=== PATIENT | female | born 1975 | race Caucasian/White ===

== ENCOUNTER 2019-06-01 10:20 | Inpatient (IN) ==
[2019-06-01] MEDS ORDERED: NS 1,000 ML IV ONE (10:38)
[2019-06-01] MEDS ORDERED: ACTIDOSE 50 GM LIQUID NG ONE (10:51)
[2019-06-01] MEDS ORDERED: ACETADOTE 15,000 MG in D5W 200 ML IV ONE (11:00)
[2019-06-01 11:02] LABS: BASO# 0.07 X1000 (0.0-0.2); BASO% 0.6 % (0.0-0.8); EOS# 0.11 X1000 (0.0-0.7); EOS% 0.9 % (0.0-10.0); HEMATOCRIT 43.9 % (37.0-47.0); HEMOGLOBIN 14.7 g/dL (12.0-16.0); IMM GRAN# 0.05 X1000 (0.0-0.04); IMM GRAN% 0.4 % (0.0-0.5); LYMPH# 2.94 X1000 (1.2-3.4); LYMPH% 23.2 % (20.5-51.1); MCH 32.1 PG (27-31); MCHC 33.5 g/dL (33-37); MCV 95.9 FL (81-99); MONO% 5.5 % (1.7-9.3); MPV 9.4 FL (7.4-10.4); NEUT# 8.79 X1000 (1.4-6.5); NEUT% 69.4 % (42.2-75.2); PLT 302 X1000 (130-400); RBC 4.58 XMIL (4.2-5.4); RDW 13.3 % (11.5-14.5); WBC 12.66 X1000 (4.8-10.8)
[2019-06-01 11:08] LABS: URINE SOURCE CLEAN CATCH
[2019-06-01 11:18] LABS: AGAP 14; ALB/GLOB RATIO 1.5; ALKALINE PHOSPHATASE 118 U/L (32-104); BUN 12 mg/dL (8-22); CALCIUM 8.3 mg/dL (8.8-10.2); CHLORIDE 101 mmol/L (98-107); COSMO 277; CREATININE 0.7 mg/dL (0.5-0.9); ESTIMATED GFR > 60; GLUCOSE 97 mg/dL (70-104); GOT 12 U/L (10-30); GPT 21 U/L (10-36); POTASSIUM 4.2 mmol/L (3.5-5.1); SODIUM 139 mmol/L (136-145); TCO2 24 mmol/L (25-35); TOTAL BILIRUBIN 0.37 mg/dL (0.20-1.00); TOTAL PROTEIN 6.7 g/dL (6.3-8.3)
[2019-06-01 11:19] LABS: BILIRUBIN URINE NEGATIVE (NEGATIVE); BLOOD URINE NEGATIVE (NEGATIVE); COLOR STRAW; GLUCOSE URINE NEGATIVE (NEGATIVE); KETONE URINE NEGATIVE (NEGATIVE); LEUKOCYTES URINE TRACE (NEGATIVE); NITRITE URINE NEGATIVE (NEGATIVE); PROTEIN URINE NEGATIVE (NEGATIVE); SP GRAVITY URINE 1.018; TURBIDITY URINE CLEAR (CLEAR); UR EPITHELIAL CELLS <10 /HPF (<10); URINE BACTERIA NEGATIVE /HPF; URINE RBC <10 /HPF (<10); URINE WBC <10 /HPF (<10); UROBILINOGEN URINE NORMAL (NORMAL)
[2019-06-01 11:25] LABS: UR AMPHETAMINES QUAL NONE DETECTED (NONE DETECT); UR BARBITUATES QUAL NONE DETECTED (NONE DETECT); UR BENZODIAZEPIN QUAL NONE DETECTED (NONE DETECT); UR CANNABINOIDS QUAL NONE DETECTED (NONE DETECT); UR COCAINE QUAL NONE DETECTED (NONE DETECT); UR METHADONE QUAL NONE DETECTED (NONE DETECT); UR OPIATES QUAL PRESUMPTIVE POSITIVE (NONE DETECT); UR OXYCODONE QUAL NONE DETECTED (NONE DETECT); UR PCP QUAL NONE DETECTED (NONE DETECT)
[2019-06-01 11:36] LABS: FREE T4 1.01 ng/dL (0.93-1.70); TSH 2.39 uIUmL (0.27-4.20)
--- NOTE | 2019-06-01 12:03 | Diag Imaging Result Doc PS360 ---
EXAM: CHEST/ABD TUBE PLACEMENT 06/01/2019 HISTORY: ng tube placement TECHNIQUE: AP abdomen COMMENT: There is an NG tube in the distal stomach or duodenal bulb. IMPRESSION: NG tube below the diaphragm Electronically signed by Giuseppe Tejeda 06/01/2019 12:00 PM
[2019-06-01] MEDS ORDERED: REGLAN IV ONE (12:54)
--- NOTE | 2019-06-01 14:25 | EKG Report ---
Test Performed on : 06/01/2019 10:26:43 AM Test Reason : POSSIBLE OD Blood Pressure : / mmHG Vent. Rate : 077 BPM Atrial Rate : 077 BPM P-R Int : 156 ms QRS Dur : 072 ms QT Int : 378 ms P-R-T Axes : -03 -28 002 degrees QTc Int : 427 ms Normal sinus rhythm. Voltage criteria for left ventricular hypertrophy Possible Lateral infarct , age undetermined Abnormal ECG When compared with ECG of 24-JUN-2018 12:51, Vent. rate has decreased BY 42 BPM Nonspecific T wave abnormality, improved in Lateral leads Unconfirmed Result
--- NOTE | 2019-06-01 14:51 | PROVIDER DOCUMENTATION ---
This chart was entered by Leonie Freeman Scribe, acting as scribe for Moisés Dong MD. [id number] Abuse/Overdose - General Chief Complaint: Suicide Attempt Stated Complaint: OVERDOSE ON TYLENOL Time Seen by Provider: 06/01/19 10:38 Source: patient Allergies/Adverse Reactions: Allergies Allergy/AdvReac Type Severity Reaction Status Date / Time No Known Allergies Allergy Verified 10/04/15 11:12 Home Medications: Home Medication List Medication Instructions Recorded Confirmed Last Taken Type Buspirone [Buspar] 10 mg PO BID 09/21/15 06/01/19 10/07/15 05:00 History Furosemide [Lasix] 20 mg PO DAILY 09/21/15 06/01/19 10/06/15 08:00 History Propranolol [Inderal] 10 mg PO BID 09/21/15 06/01/19 10/06/15 21:00 History Venlafaxine [Effexor] 37.5 mg PO DAILY 09/21/15 06/01/19 10/07/15 05:00 History Atorvastatin Calcium 40 mg PO DAILY 06/01/19 06/01/19 Unknown History Eszopiclone 3 mg PO DAILY 06/01/19 06/01/19 Unknown History Gabapentin 800 mg PO DAILY 06/01/19 06/01/19 Unknown History Methocarbamol 750 mg PO TID PRN 06/01/19 06/01/19 Unknown History - History of Present Illness-Drug/Alcohol Nature of Presenting Problem: Patient is a 44 year old female who presents to the ED after having a suicide attempt. States she took 20 pills of Tylenol about 2 hours ago. Report headache, chest pain, and nausea. States she has had SI and depression for the last month. Denies hallucinations. This episode of drinking or use began:: 1-3 hours ago (2 hours ago) Severity: reports: mild Psychiatric Complaints: reports: depressed, suicidal ideation Associated Symptoms: reports: chest pain, headaches, nausea Any injuries associated with this episode of intoxication?: No Similar Symptoms Previously?: No Recently seen or treated by another doctor?: No - Overdose Intentional drug overdose?: Yes List substance(s) ingested.: 20 pills of Tylenol (unknown dose) Suicide Risk Assessment: prior attempt Review of Systems - Adult - REVIEW OF SYSTEMS - ADULT Constitutional: reports: no symptoms reported. denies: chills, fever, fatique Eyes: reports: no symptoms reported Ears, Nose, Mouth & Throat: reports: no symptoms reported Cardiovascular: reports: chest pain. denies: heart murmur, orthopnea Respiratory: reports: no symptoms reported Gastrointestinal: reports: see HPI, nausea. denies: abdominal pain, vomiting Genitourinary: reports: no symptoms reported Musculoskeletal: reports: no symptoms reported Integumentary: reports: no symptoms reported Neurological: reports: see HPI, headache/migraines (VAN). denies: dizziness/vertigo, syncope Psychiatric: reports: no symptoms reported Endocrine: reports: no symptoms reported Hematologic/Lymphatic: reports: no symptoms reported Allergic/Immunologic: reports: no symptoms reported All Other Systems: Reviewed and Negative Past History - Adult - PAST MEDICAL HISTORY-ADULT Review of Records: reports: Old Records Reviewed, Social history reviewed & non- contributory. Major Childhood Illnesses: reports: denies history Cardiovascular: reports: HTN, hyperlipidemia Respiratory: reports: sleep apnea Gastrointestinal: reports: GERD Obstetrical/Gynecological: reports: denies history Genitourinary: reports: denies history Musculoskeletal: reports: denies history Neurological: reports: Seizures/Epilepsy Psychiatric: reports: depression Endocrine/Immune: reports: denies history Other Conditions: reports: denies history - PRIOR SURGERIES/PROCEDURES Surgical/Procedure History: reports: cholecystectomy, hysterectomy, back/neck (back sx) - IMMUNIZATION STATUS Childhood Immunizations: See Nurse Assessment Flu Vaccine: See Nurse Assessment - FAMILY HISTORY Family History: reviewed, not pertinent - SOCIAL HISTORY Smoking: cigarettes (former) Substance Use: denies Physical Exam-General - PHYSICAL EXAM-ADULT Initial Vital Signs Reviewed: Yes - CONSTITUTIONAL General Appearance: alert, no apparent distress. negative: lethargic - EYES Eyes: PERRL/EOMI, pink conjunctivae. negative: scleral icterus - HEAD, EARS, NOSE, MOUTH & THROAT HENMT: normocephalic/atraumatic, moist mucous membranes. negative: angioedema - RESPIRATORY Respiratory: chest non-tender, lungs clear, normal breath sounds. negative: crackles, rhonchi - CARDIOVASCULAR Cardiovascular: normal peripheral pulses, regular rate, rhythm. negative: tachycardia - GASTROINTESTINAL (ABDOMEN) Abdominal Exam: normal bowel sounds, non tender, soft. negative: guarding, rigid - MUSCULOSKELETAL Extremity: normal inspection. negative: deformity, erythema, swelling - SKIN Integumentary: normal color, normal turgor, warm/dry. negative: diaphoresis, pallor, rash - NEUROLOGIC Neurologic: grossly normal. negative: aphasia, facial droop - PSYCHIATRIC Psych/Mental Status: normal mood/affect, oriented x 3. negative: anxious Progress - PLAN OF CARE/RESULTS Progress/Plan/Lab Results: Vital Signs - 8 hr 06/01/19 10:26 06/01/19 10:30 06/01/19 12:01 Temperature 98.5 F Pulse Rate 77 Respiratory Rate 14 Blood Pressure 159/101 159/101 145/106 O2 Sat by Pulse Oximetry 98 98 06/01/19 13:01 06/01/19 14:01 Temperature Pulse Rate Respiratory Rate Blood Pressure 145/110 142/99 O2 Sat by Pulse Oximetry 95 94 L Laboratory Results - last 24 hr 06/01/19 06/01/19 06/01/19 10:37 10:37 10:37 WBC 12.66 H RBC 4.58 Hgb 14.7 Hct 43.9 MCV 95.9 MCH 32.1 H MCHC 33.5 RDW Std Deviation 13.3 Plt Count 302 MPV 9.4 Immature Gran % (Auto) 0.4 Neut % (Auto) 69.4 Lymph % (Auto) 23.2 [place] % (Auto) 5.5 Eos % (Auto) 0.9 Baso % (Auto) 0.6 Immature Gran # (Auto) 0.05 H Neut # (Auto) 8.79 H Lymph # (Auto) 2.94 [place] # (Auto) 0.70 H Eos # (Auto) 0.11 Baso # (Auto) 0.07 Sodium 139 Potassium 4.2 Chloride 101 Carbon Dioxide 24 L Anion Gap 14 BUN 12 Creatinine 0.7 Estimated GFR/1.73 m2 > 60 BUN/Creatinine Ratio 17 Glucose 97 Calculated Osmolality 277 Calcium 8.3 L Total Bilirubin 0.37 AST 12 ALT 21 Alkaline Phosphatase 118 H Total Protein 6.7 Albumin 4.0 Globulin 2.7 Albumin/Globulin Ratio 1.5 Vitamin B12 TSH Free T4 Urine Source Urine Color Urine Turbidity Urine pH Ur Specific Springer Urine Protein Ur Glucose (Stick) Ur Ketones (Stick) Urine Blood Urine Nitrite Urine Bilirubin Urobilinogen Dipstick Urine Leukocytes Urine WBC (Auto) Urine RBC (Auto) U Epithel Cells (Auto) Urine Bacteria (Auto) Urine Test Salicylates Urine Opiates Screen Ur Oxycodone Screen Ur Methadone, Qual Acetaminophen Ur Barbiturates Screen Ur Phencyclidine Scrn Ur Amphetamines Screen U Benzodiazepines Scrn Urine Cocaine Screen U Cannabinoids Screen Plasma/Serum Ethyl Alc 06/01/19 06/01/19 06/01/19 10:37 10:37 10:37 WBC RBC Hgb Hct MCV MCH MCHC RDW Std Deviation Plt Count MPV Immature Gran % (Auto) Neut % (Auto) Lymph % (Auto) [place] % (Auto) Eos % (Auto) Baso % (Auto) Immature Gran # (Auto) Neut # (Auto) Lymph # (Auto) [place] # (Auto) Eos # (Auto) Baso # (Auto) Sodium Potassium Chloride Carbon Dioxide Anion Gap BUN Creatinine Estimated GFR/1.73 m2 BUN/Creatinine Ratio Glucose Calculated Osmolality Calcium Total Bilirubin AST ALT Alkaline Phosphatase Total Protein Albumin Globulin Albumin/Globulin Ratio Vitamin B12 217 L TSH 2.39 Free T4 1.01 Urine Source Urine Color Urine Turbidity Urine pH Ur Specific Springer Urine Protein Ur Glucose (Stick) Ur Ketones (Stick) Urine Blood Urine Nitrite Urine Bilirubin Urobilinogen Dipstick Urine Leukocytes Urine WBC (Auto) Urine RBC (Auto) U Epithel Cells (Auto) Urine Bacteria (Auto) Urine Test Salicylates < 3.00 L Urine Opiates Screen Ur Oxycodone Screen Ur Methadone, Qual Acetaminophen 39.7 H Ur Barbiturates Screen Ur Phencyclidine Scrn Ur Amphetamines Screen U Benzodiazepines Scrn Urine Cocaine Screen U Cannabinoids Screen Plasma/Serum Ethyl Alc 06/01/19 06/01/19 06/01/19 10:56 10:56 10:56 WBC RBC Hgb Hct MCV MCH MCHC RDW Std Deviation Plt Count MPV Immature Gran % (Auto) Neut % (Auto) Lymph % (Auto) [place] % (Auto) Eos % (Auto) Baso % (Auto) Immature Gran # (Auto) Neut # (Auto) Lymph # (Auto) [place] # (Auto) Eos # (Auto) Baso # (Auto) Sodium Potassium Chloride Carbon Dioxide Anion Gap BUN Creatinine Estimated GFR/1.73 m2 BUN/Creatinine Ratio Glucose Calculated Osmolality Calcium Total Bilirubin AST ALT Alkaline Phosphatase Total Protein Albumin Globulin Albumin/Globulin Ratio Vitamin B12 TSH Free T4 Urine Source CLEAN CATCH Urine Color STRAW Urine Turbidity CLEAR Urine pH 6.0 Ur Specific [place] 1.018 Urine Protein NEGATIVE Ur Glucose (Stick) NEGATIVE Ur Ketones (Stick) NEGATIVE Urine Blood NEGATIVE Urine Nitrite NEGATIVE Urine Bilirubin NEGATIVE Urobilinogen Dipstick NORMAL Urine Leukocytes TRACE A Urine WBC (Auto) <10 Urine RBC (Auto) <10 U Epithel Cells (Auto) <10 Urine Bacteria (Auto) NEGATIVE Urine Test NEGATIVE Salicylates Urine Opiates Screen PRESUMPTIVE POSITIVE A Ur Oxycodone Screen NONE DETECTED Ur Methadone, Qual NONE DETECTED Acetaminophen Ur Barbiturates Screen NONE DETECTED Ur Phencyclidine Scrn NONE DETECTED Ur Amphetamines Screen NONE DETECTED U Benzodiazepines Scrn NONE DETECTED Urine Cocaine Screen NONE DETECTED U Cannabinoids Screen NONE DETECTED Plasma/Serum Ethyl Alc Orders Category Date Time Status NG/OG/Feeding Tube Discontinue ORDERED Care 06/01/19 13:32 Active CHEST/ABD TUBE PLACEMENT [RAD] Stat Exams 06/01/19 11:35 Completed ACETAMINOPHEN [TDM] Stat Lab 06/01/19 10:37 Completed ACETAMINOPHEN [TDM] Stat Lab 06/01/19 14:14 Received ALCOHOL BLOOD Stat Lab 06/01/19 10:37 Completed CBC WITH ELECTRONIC DIFF [HEME] Stat Lab 06/01/19 10:37 Completed COMPREHENSIVE METABOLIC PANEL [CHEM] Stat Lab 06/01/19 10:37 Completed FREE T4 Stat Lab 06/01/19 10:37 Completed TEST-URINE [PREG] Stat Lab 06/01/19 10:56 Completed SALICYLATES [TDM] Stat Lab 06/01/19 10:37 Completed TSH Stat Lab 06/01/19 10:37 Completed URINALYSIS W/POSS RFLX CULT [URINALYSIS] Stat Lab 06/01/19 10:56 Completed URINE CULTURE [RM] Routine Lab 06/01/19 11:25 Received URINE DRUG SCREEN Stat Lab 06/01/19 10:56 Completed VITAMIN B12 Stat Lab 06/01/19 10:37 Completed 0.9% Sodium Chloride Inj [Ns] 1,000 ml Med 06/01/19 10:38 Active IV 150 mls/hr Acetylcysteine [Acetadote] 15,000 mg Med 06/01/19 11:00 Discontinued Dextrose 5%-Water Inj [D5w] 200 ml IV ONCE Charcoal/Sorbitol Solution [Actidose 50 gm Liquid] Med 06/01/19 10:51 Discontinued 50 gm NG NOW ONE Metoclopramide [Reglan] Med 06/01/19 12:54 Discontinued 10 mg IV NOW ONE EKG [EKG] Stat Ther 06/01/19 10:26 Draft Result Diagrams: 06/01/19 10:37 06/01/19 10:37 - EKG 1 Time of EKG reading by physician:: 10:26 EKG Read and Signed by:: Moisés Dong EKG Interpretation (*Must complete 3 of following elements*): Abnormal Rate: 77 Rhythm: normal sinus rhythm [place]: normal QRS: LVH (voltage criteria) LA Interval: normal Comments: possible lateral infarct, age undetermined - XRAY 1 XRAY Study: Chest, Abdomen Impression: See EMR Report ( EXAM: CHEST/ABD TUBE PLACEMENT 06/01/2019 HI STORY: ng tube placement TECHNIQUE: AP abdomen COMMENT: There is an NG tube in the distal stomach or duodenal bulb. IMPRESSION: NG tube below the diaphragm Electronically signed by Giuseppe Tejeda 06/01/2019 12:00 PM 06/01/19 1200 Interpreting Physician: Giuseppe Tejeda MD Dictated Da te/Time: 06/01/19 1200 cc: Moisés Dong MD; Emma Bergman) - CONSULTS/PCP/HOSPITALIST Notification #1 *Consult/PCP/Hospitalist*: SVETLANA Middleton for Hospitalist Time Discussed: 14:44 (Dr. Anthony accepted admit ) Reason/Comments: Dr. Dong consulted with Emi about patient. Consult Disposition: Will see in ED, Admit Departure - Departure Date of Disposition Decision: 06/01/19 Time of Disposition Decision: 14:44 DIAGNOSIS: Suicide attempt by acetaminophen overdose Qualifiers: Encounter type: initial encounter Qualified Code(s): T39.1X2A - Poisoning by 4- Aminophenol derivatives, intentional self-harm, initial encounter Depression Qualifiers: Depression Type: unspecified Qualified Code(s): F32.9 - Major depressive disorder, single episode, unspecified Disposition: ADMITTED INPATIENT 09 Certified Medical Emergency: Emergent Condition: Fair Referrals and Follow-Ups: Emma Bergman [Primary Care Provider] - - Critical Care Note This patient required my direct & personal management of CC.: No Attestation - Physician/ MIKAYLA Attestation Patient care was provided by Advanced Practice Provider:: No The physician spent face to face time with patient:: Yes Advanced Practice Provider documentation review:: Supervising physician onsite and consulted in the evaluation and care of this patient. The physician did have a face to face encounter with the patient. This chart was documented by the indicated scribe, (Leonie Freeman Scribe) and accurately reflects the services I performed and decisions made by me, Moisés Dong MD, as attested by the provider's signature.
[2019-06-01] MEDS ORDERED: ACETADOTE IV ONE (15:34)
[2019-06-01] MEDS ORDERED: D5W IV ONE (15:34)
[2019-06-01] MEDS: NS 1,000 ML IV SCH ×2 (16:23→22:48)
[2019-06-01] MEDS ORDERED: ACETADOTE 5,000 MG in D5W 500 ML IV ONE (17:00)
[2019-06-01] MEDS ORDERED: LABETALOL IV ONE (18:15)
[2019-06-01] MEDS ORDERED: ZOFRAN IV ONE (19:32)
--- NOTE | 2019-06-01 20:24 | HISTORY AND PHYSICAL ---
PRIMARY CARE PROVIDER: Dr. Emma Bergman. CHIEF COMPLAINT: Intentional overdose. HISTORY OF PRESENT ILLNESS: Ms. Trinh is a 44-year-old female with a past medical history of intentional overdose at the age of 17 with pills, manic depression, anxiety, hypertension, hyperlipidemia, bilateral lower extremity nerve pain. She reports she has been having a manic depressive episode and took a handful of Tylenol with the intent to kill herself. She reported suicidal ideations and depression for over a month. There were no hallucinations. Her initial Tylenol level in the ED was 39.7. They did give her activated charcoal as well as Acetadote. Her acetaminophen level is 7.1. She is positive for opiates. Her salicylate level is less than 3. We will monitor in the ICU overnight, monitor her liver function, and repeat her acetaminophen level, and once she is medically cleared, we will have Sunshine Vazquez come and talk to her about admission. REVIEW OF SYSTEMS: A 12 point review of systems. The patient complains of headache. Denies any fever, chills, cough, shortness of breath, chest pain, palpitations, nausea, vomiting, or diarrhea, or abdominal pain. PHYSICAL EXAMINATION: VITAL SIGNS: Temperature is 98.5 degrees, heart rate 77, respirations 14, blood pressure 159/101. GENERAL: Ms. Trinh is a 44-year-old female who is sitting up in the bed cross-legged, conversing with her boyfriend and sister, in no acute distress. HEENT: Atraumatic, normocephalic. PERRL. NECK: Supple. Trachea midline. CARDIOVASCULAR: S1, S2 appreciated. No murmurs, gallops, rubs noted. RESPIRATORY: Lung sounds clear bilaterally. GI: Soft, nontender, nondistended. Positive bowel sounds 4 quads. LOWER EXTREMITIES: Negative for edema. NEUROLOGIC: No focal deficits noted. PAST MEDICAL HISTORY: 1. Manic depressive disorder. 2. Anxiety. 3. Hypertension. 4. Hyperlipidemia. 5. Bilateral lower extremity nerve pain. PREVIOUS SURGICAL HISTORY: 1. Three back surgeries. 2. Hysterectomy. 3. Cholecystectomy. SOCIAL HISTORY: She is ; lives with her boyfriend. She has a 14-year-old son who is autistic. No alcohol, tobacco, or illicit drug use. FAMILY HISTORY: Mother with several TIAs and a paternal grandfather who had an unknown type of cancer. DIAGNOSTIC DATA: NG tube placement x-ray was in good position. Has since been removed. EKG: Normal sinus rhythm, 77 beats per minute. LABORATORY DATA: White count 12, hemoglobin and hematocrit 14 and 43, platelet count is 302. Sodium 139, potassium 4.2, BUN 12, creatinine 0.7, blood glucose is 97. AST 12, ALT 21, alkaline phosphatase 118. Vitamin B12 was 217. Urinalysis was negative for bacteria, negative for nitrites. Toxicology screen was positive for opiates. Salicylate level was less than 3. First acetaminophen level was 39. After Acetadote, it was 7.1. ASSESSMENT AND PLAN: 1. Intentional drug overdose with Tylenol. She reported a handful. Sister at the bedside stated that she took 20 with intent to kill herself. She does have a prior attempt at the age of 17 with pills as well. She was given Activated Charcoal as well as Acetadote in the emergency department. Her acetaminophen level has come down. We will continue to monitor in the ICU one-on-one. Recheck her liver function in the morning as well as another acetaminophen level and continue with aggressive intravenous hydration. 2. Manic depressive disorder. Will consult Sunshine Vazquez when appropriate. 3. Anxiety. 4. Hypertension. 5. Hyperlipidemia. 6. Bilateral lower extremity nerve pain. 7. Further recommendations to follow physician evaluation, laboratory and diagnostic data. Dictated by SVETLANA Martinez for Ciera Anthony MD cc: Ciera Anthony MD
[2019-06-01] MEDS ORDERED: LABETALOL IV PRN (20:40)
[2019-06-01] MEDS ORDERED: ACETADOTE 10,000 MG in D5W 1,000 ML IV ONE (21:00)
[2019-06-01] MEDS ORDERED: LIPITOR PO SCH (21:00)
[2019-06-01] MEDS: COREG PO SCH (21:13)
[2019-06-01] MEDS: NORVASC PO SCH (21:13)
[2019-06-01] MEDS: BUSPAR PO SCH (21:14)
[2019-06-01] MEDS ORDERED: SODIUM CHLORIDE 0.9% INJ PRN (22:19)
[2019-06-01 22:36] LABS: ACETAMINOPHEN < 1.2 ug/mL (10-30); ALB/GLOB RATIO 1.3; ALBUMIN 3.5 g/dL (3.5-5.0); ALKALINE PHOSPHATASE 90 U/L (32-104); GOT 10 U/L (10-30); GPT 17 U/L (10-36); TOTAL BILIRUBIN 0.31 mg/dL (0.20-1.00); TOTAL PROTEIN 6.3 g/dL (6.3-8.3)
[2019-06-01] MEDS: PHENERGAN IV PRN (22:47)
[2019-06-01] MEDS ORDERED: ZOFRAN IV PRN (23:45)
[2019-06-02 06:15] LABS: BASO# 0.02 X1000 (0.0-0.2); BASO% 0.2 % (0.0-0.8); HEMATOCRIT 40.9 % (37.0-47.0); HEMOGLOBIN 13.8 g/dL (12.0-16.0); IMM GRAN# 0.04 X1000 (0.0-0.04); IMM GRAN% 0.3 % (0.0-0.5); LYMPH# 1.93 X1000 (1.2-3.4); LYMPH% 14.6 % (20.5-51.1); MCH 32.5 PG (27-31); MCHC 33.7 g/dL (33-37); MCV 96.2 FL (81-99); MONO# 0.96 X1000 (0.11-0.59); MONO% 7.2 % (1.7-9.3); MPV 9.5 FL (7.4-10.4); NEUT# 10.31 X1000 (1.4-6.5); NEUT% 77.7 % (42.2-75.2); PLT 294 X1000 (130-400); RBC 4.25 XMIL (4.2-5.4); RDW 13.5 % (11.5-14.5); WBC 13.26 X1000 (4.8-10.8)
[2019-06-02 06:21] LABS: INR 0.96; PROTIME 12.9 Seconds (11.0-16.0)
[2019-06-02 06:49] LABS: ACETAMINOPHEN < 1.2 ug/mL (10-30); AGAP 15; ALB/GLOB RATIO 1.3; ALBUMIN 3.5 g/dL (3.5-5.0); ALKALINE PHOSPHATASE 91 U/L (32-104); BUN 7 mg/dL (8-22); CHLORIDE 106 mmol/L (98-107); COSMO 287; CREATININE 0.6 mg/dL (0.5-0.9); ESTIMATED GFR > 60; GLUCOSE 100 mg/dL (70-104); GOT 11 U/L (10-30); GPT 16 U/L (10-36); MAGNESIUM 1.9 mg/dL (1.5-2.7); POTASSIUM 3.4 mmol/L (3.5-5.1); SALICYLATES < 3.00 mg/dL (3-10); SODIUM 145 mmol/L (136-145); TCO2 24 mmol/L (25-35); TOTAL BILIRUBIN 0.48 mg/dL (0.20-1.00); TOTAL PROTEIN 6.2 g/dL (6.3-8.3)
[2019-06-02] MEDS ORDERED: KLOR-CON PO ONE (06:56)
--- NOTE | 2019-06-02 07:27 | Diag Imaging Result Doc PS360 ---
EXAM: CHEST-PORTABLE INDICATION: dyspnea TECHNIQUE: One view COMPARISON: 06/01/2019 and 06/24/2019 FINDINGS: There has been interval removal of the NG tube. The lungs are grossly clear. There is no discrete pleural fluid collection or pneumothorax. The cardiomediastinal silhouette and central vasculature are grossly unremarkable. IMPRESSION: Interval removal of the NG tube. No definite acute chest pathology, otherwise. Electronically signed by Timothy Sorto 06/02/2019 7:25 AM
[2019-06-02] MEDS: NORVASC PO SCH (08:49)
[2019-06-02] MEDS: BUSPAR PO SCH (08:49)
[2019-06-02] MEDS: COREG PO SCH (08:50)
[2019-06-02] MEDS ORDERED: VITAMIN B-12 SL SCH (09:00)
[2019-06-02] MEDS ORDERED: EFFEXOR PO SCH (09:00)
[2019-06-02] MEDS: PHENERGAN IV PRN (11:39)
--- NOTE | 2019-06-02 13:54 | PROGRESS NOTE ---
DATE: 06/02/2019 SUBJECTIVE: The patient is resting comfortably in bed. She states that she is depressed but not feeling suicidal right now. OBJECTIVE: Vital Signs: Temperature 98.2 degrees, blood pressure 124/92, heart rate 83, respirations 16, O2 saturation 99% on room air. General: This is a morbidly obese female lying in bed in no acute distress. Heart: S1, S2 normal. Regular rate and rhythm. Lungs: Clear to auscultation bilaterally. Abdomen: Positive bowel sounds. Soft, nontender, nondistended. Extremities: No edema, no cyanosis. Neuro: The patient is alert and oriented x4. LABS: Sodium 145, potassium 3.4, chloride 106, CO2 24, creatinine 0.6, glucose 100, calcium 8, vitamin B12 217. ASSESSMENT AND PLAN: 1. Intentional drug overdose on acetaminophen. The patient's liver function tests are normal and the acetaminophen level has decreased. The patient states that she is open to inpatient psychiatric treatment for her severe depression and suicide attempts. Will consult [facility] for inpatient placement for psychiatric care. 2. Morbid obesity. Aware. 3. Vitamin B12 deficiency. Will start the patient on vitamin B12 replacement therapy. 4. Major depression. Continue on Effexor. 5. Hypertension. Continue on Coreg and Norvasc. 6. Disposition. The patient is medically stable for discharge to inpatient psychiatric treatment. cc: Ciera Anthony MD
[2019-06-02 16:21] VITALS: BP 136/88
== END 2019-06-02 18:09 | DRG 918 ==
LOC: SUPCPDRO → ED 10:20 → ICU 15:19 → 1N 06-02 10:11
PROVIDERS: ATTEND Internal Medicine